=== PATIENT | female | born 1955 | race Caucasian/White ===

== ENCOUNTER 2021-01-16 02:41 | Emergency (ER) | payer OTHER ==
[~2021-01-16] VITALS: Ht 167.6 cm; Wt 67.1 kg
--- NOTE | 2021-01-16 03:00 | NUR ---
PATIENT BIBSELF WITH C/O EPIGASTRIC PAIN RADIATING TO BACK FOR THE PAST 24HRS. PATIENT STATES SHE HAD ADVIL WITH NO RELIEF. PATIENT IS A/O X 4, RR EVEN AND UNLABORED, NO SIGNS OF SOB NOTED. PATIENT CONNECTED CARDAIC AND POX.
[2021-01-16] MEDS ORDERED: ONDANSETRON HCL/PF 4 MG/2 ML VIAL ONE (03:29)
[2021-01-16] MEDS ORDERED: MORPHINE SULFATE INJ 4 MG/ML DISP.SYRIN ONE (03:29)
[2021-01-16] MEDS ORDERED: ONDANSETRON HCL/PF 4 MG/2 ML VIAL IVP ONE (03:30)
[2021-01-16] MEDS ORDERED: IV NS 0.9% 500 ML BAG IV ONE (03:30)
[2021-01-16] MEDS ORDERED: MORPHINE SULFATE INJ 2 MG/ML DISP.SYRIN IV ONE ×2 (03:30→15:00)
[2021-01-16 03:47] LABS: BILIRUBIN,URINE MODERATE (NEGATIVE); COLOR,URINE DARK YELLOW (YELLOW); LEUKOCYTE ESTERASE ,URINE Negative (NEGATIVE); NITRITE, URINE Negative (NEGATIVE); PH,URINE 5.5 (5.0-8.0); PROTEIN,URINE Trace mg/dl (NEGATIVE); UGLUCOSE Negative (NEGATIVE)
[2021-01-16 03:49] LABS: BASOPHILS # (AUTO) 0.1 K/uL (0.0-0.2); BASOPHILS % (AUTO) 0.6 % (0.0-2.0); EOSINOPHILS % (AUTO) 1.6 % (0.0-6.0); HEMATOCRIT 38 % (33-45); HEMOGLOBIN 12.5 g/dL (11.5-14.8); LYMPHOCYTES # (AUTO) 0.8 K/uL (0.8-4.8); LYMPHOCYTES % (AUTO) 9.3 % (20.0-44.0); MEAN CORPUSCULAR HGB CONC 33 g/dl (31.0-36.0); MEAN CORPUSCULAR VOLUME 92 fL (82-100); MONOCYTES # (AUTO) 0.8 K/uL (0.1-1.30); MONOCYTES % (AUTO) 8.5 % (2.0-12.0); NEUTROPHILS # (AUTO) 7.1 K/uL (1.8-8.9); PLATELET COUNT (AUTO) 175 K/uL (150-450); RED BLOOD CELL COUNT(AUTO) 4.13 MIL/uL (4.0-5.2); WHITE BLOOD COUNT (AUTO) 8.8 K/uL (4.3-11.0)
[2021-01-16 04:05] LABS: CALCIUM, SERUM 9.1 mg/dL (8.5-10.1); CARBON DIOXIDE 29 mmol/L (21-32); CHLORIDE 107 mmol/L (98-107); GLUCOSE 138 mg/dL (74-106); POTASSIUM 3.8 mmol/L (3.5-5.1); SODIUM SERUM 141 mmol/L (136-145); UREA NITROGEN, BLOOD 17 mg/dL (7-18)
[2021-01-16 04:12] LABS: ALANINE AMINOTRANSFERASE 314 U/L (12-78); ALBUMIN 3.8 g/dL (3.4-5.0); ALKALINE PHOSPHATASE 139 U/L (46-116); ASPARTATE AMINOTRANSFERASE 523 U/L (15-37); BILIRUBIN,DIRECT 1.1 mg/dL (0.0-0.2); TOTAL PROTEIN, SERUM 6.8 g/dL (6.4-8.2)
--- NOTE | 2021-01-16 04:15 | NUR ---
US AT BEDSIDE
[2021-01-16 04:21] LABS: BILIRUBIN,TOTAL 1.3 mg/dL (0.2-1.0)
[2021-01-16 04:39] LABS: LIPASE > 1500 U/L (73-393)
--- NOTE | 2021-01-16 05:37 | NUR ---
COVID SWAB TAKEN VIA DIGITAL IMAGING SPECIALIST R [facility] AND SENT TO LAB
--- NOTE | 2021-01-16 05:46 | NUR ---
STARTED ADMISSION PACKET. PT HAS [employer] INS[employer]ANCE. CM WILL BE NOTIFIED
--- NOTE | 2021-01-16 05:59 | NUR ---
called lab for f/u on covid swab
--- NOTE | 2021-01-16 06:39 | NUR ---
faxed clinicals to bee Cueto at [phone]
--- NOTE | 2021-01-16 06:57 | NUR ---
DR. WILBURN FOR [facility] ON THE PHONE WITH DR. MANUEL
--- NOTE | 2021-01-16 07:16 | NUR ---
BRADLEY VILLAVICENCIO AWARE OF ACCEPTANCE. CM WILL ARRANGE TRANSPORT
--- NOTE | 2021-01-16 08:16 | NUR ---
THE PATIENT ALERT AND ORIENTED X4. DENIES PAIN AT THIS TIME. IN ROOM AIR AND DENIES SOB. RESPIRATION REGULAR AND UNLABORED. WILL CONTINUE TO MONITOR THE PATIENT.
--- NOTE | 2021-01-16 10:44 | NUR ---
CALLED CASE MANAGEMENT [phone] ABOUT ETA OF TRANSPORT. YOLY--> MOE WILL CALL US BACK WITH ETA OF TRANSPORT.
--- NOTE | 2021-01-16 13:20 | NUR ---
KRISTEN [phone] CALLED FROM [facility] PT ACCEPTED TO [facility] [address] CALL [phone] CASTRO AYALA WILL CONTACT WITH TRANSPORT INFO.
--- NOTE | 2021-01-16 13:38 | NUR ---
CHAN[facility] DIGITAL CONTENT SPECIALIST GAVE ETA. 1630, [facility]
[2021-01-16] MEDS ORDERED: MORPHINE SULFATE INJ 2 MG/ML DISP.SYRIN ONE (15:05)
--- NOTE | 2021-01-16 16:28 | NUR ---
Omaira mcgrath in [facility] - 01/16/21 at 1628 by PAUL REPORT GIVEN TO NURSE JOVANY VASQUEZ
--- NOTE | 2021-01-16 16:28 | NUR ---
REPORT GIVEN TO NURSE MANZO FROM [facility]
--- NOTE | 2021-01-16 17:00 | NUR ---
THE PATIENT IS TRANSFERED TO [facility] IN STABLE CONDITION VIA ARRANGED TRANSPO
[2021-01-16 17:02] VITALS: BP 121/76
== END 2021-01-16 17:03 | disposition short-term general hospital (02) ==
LOC: ER 02:52
DX: K85.10 Biliary acute pancreatitis without necrosis or infection (principal); R94.31 Abnormal electrocardiogram [ECG] [EKG]; Z20.822 Contact with and (suspected) exposure to COVID-19
CPT/HCPCS: 36415; 71045; 76705; 80048; 80076; 81003; 83690; 84484; 85025; 85730; 87426; 93005; 96361; 96374; 96375; 96376; 99285; C9803; J2270 ×2; J2405

== ENCOUNTER 2024-08-06 13:04 | Emergency (ER) | payer MEDICARE, BC ==
[~2024-08-06] VITALS: Ht 170.2 cm; Wt 65.8 kg
[2024-08-06] MEDS: IV NS 0.9% 1,000 ML BAG IV ONE (13:37)
[2024-08-06 13:54] LABS: CALCIUM, SERUM 9.2 mg/dL (8.5-10.1); CREATININE 1.1 mg/dL (0.6-1.3); POTASSIUM 4.5 mmol/L (3.5-5.1)
[2024-08-06 14:00] LABS: ALBUMIN 3.9 g/dL (3.4-5.0); BILIRUBIN,DIRECT 0.1 mg/dL (0.0-0.2); BILIRUBIN,TOTAL 0.4 mg/dL (0.2-1.0); TOTAL PROTEIN, SERUM 6.8 g/dL (6.4-8.2)
[2024-08-06 14:14] LABS: BASOPHILS % (AUTO) 0.5 % (0.0-2.0); EOSINOPHILS # (AUTO) 0.1 K/uL (0.0-0.7); EOSINOPHILS % (AUTO) 2.1 % (0.0-6.0); HEMATOCRIT 39 % (33-45); HEMOGLOBIN 12.7 g/dL (11.5-14.8); LYMPHOCYTES # (AUTO) 1.8 K/uL (0.8-4.8); LYMPHOCYTES % (AUTO) 25.1 % (20.0-44.0); MEAN CORPUSCULAR HEMOGLOBIN 29 PG (26.0-33.0); MEAN CORPUSCULAR HGB CONC 33 g/dl (31.0-36.0); MEAN CORPUSCULAR VOLUME 89 fL (82-100); MONOCYTES # (AUTO) 0.7 K/uL (0.1-1.30); MONOCYTES % (AUTO) 9.2 % (2.0-12.0); NEUTROPHILS # (AUTO) 4.5 K/uL (1.8-8.9); NEUTROPHILS % (AUTO) 63.1 % (43.0-81.0); PLATELET COUNT (AUTO) 179 K/uL (150-450); RED BLOOD CELL COUNT(AUTO) 4.32 MIL/uL (4.0-5.2); RED CELL DISTRIBUTION WIDTH 13.4 % (11.5-15.0); WHITE BLOOD COUNT (AUTO) 7.1 K/uL (4.3-11.0)
[2024-08-06 14:44] VITALS: BP 143/70; TEMP 97.9; O2SAT 98
== END 2024-08-06 14:45 | disposition home or self-care (01) ==
LOC: ER 13:11
DX: R10.13 Epigastric pain (principal); Z90.49 Acquired absence of other specified parts of digestive tract
CPT/HCPCS: 99284; 74176; 96360; 85025; 80048; 83690; 80076; 36415; J7030